=== PATIENT | male | born 1970 | race Caucasian/White ===

== ENCOUNTER 2022-03-19 11:48 | Emergency (ER) | payer BC ==
--- OUTSIDE RECORDS SUMMARY | 2022-03-19 11:51 | XMS REPORT | Continuity of Care Document ---
:1970 Author Organization [facility] t Address [address] [place] [address] Care Team Providers Name Role Phone C_Hall Attending Clinician Unavailable C_Hall Admitting Clinician Unavailable Payers Payer Name Policy Type Policy Number Effective Date Expiration Date S marques [facility]: [facility] [place] [id number] 2015 00:00:00 Problems This patient has no known problems. Allergies, Adverse Reactions, Alerts This patient has no known allergies or adverse reactions. Medications This patient has no known medications. Procedures This patient has no known procedures. Encounters Start End Encounter Admission Attending Care Care Encounter Source Date/Time Date/Time Type Type Clinicians Facility Department ID 2020-06-02 2020-06-02 Outpatient [facility] [id number] [place] 02:43:00 02:43:00 [facility] Results This patient has no known results.
[2022-03-19] MEDS ORDERED: FAMOTIDINE 20 MG/2 ML VIAL IV ONE (12:34)
[2022-03-19] MEDS ORDERED: METHYLPREDNISOLONE 125 MG INJ ONE (13:10)
[2022-03-19] MEDS ORDERED: DIPHENHYDRAMINE 50 MG/ML VIAL ONE (13:10)
[2022-03-19 13:20] LABS: Hematocrit 43.7 % (39.6-49.0); MCV 86.6 fL (80-100); MPV 7.7 fL (7.6-11.3); RBC Red Blood Cell Count 5.05 M/uL (4.33-5.43)
[2022-03-19 13:38] LABS: Potassium 3.5 mmol/L (3.5-5.1); Troponin High Sensitivity 5.3 pg/mL (<58.9)
--- NOTE | 2022-03-19 15:34 | ER ---
Nurse's Notes [facility] Name: Jason Kirk Age: 51 yrs Sex: Male : 1970 Arrival Date: 03/19/2022 Time: 11:51 Bed 5 Private MD: Diagnosis: Personal history of anaphylaxis;Insect allergy status Presentation: 03/19 11:59 Chief complaint: EMS states: anaphylactic reaction to a wasp sting at 1055 , iw administered his epi pen at 1059, EMS arrived on scne and pt was still SOB, pale, diaphoretic , administered epi 0.3 Im to right deltoid, gave 50 benadryl IV, 125 solumedrol, one albuterol treatment , symptoms improved. Coronavirus screen: At this time, the client does not indicate any symptoms associated with coronavirus-19. Ebola Screen: Patient negative for fever greater than or equal to 101.5 degrees Fahrenheit, and additional compatible Ebola Virus Disease symptoms Patient denies exposure to infectious person. Patient denies travel to an Ebola-affected area in the 21 days before illness onset. No symptoms or risks identified at this time. Onset: The symptoms/episode began/occurred 1 hour(s) ago. Anaphylaxis evaluation, the patient reports or I have noted the following symptoms which indicate a significant risk of anaphylaxis: shortness of breath. Initial Sepsis Screen: Does the patient meet any 2 criteria? No. Patient's initial sepsis screen is negative. Does the patient have a suspected source of infection? No. Patient's initial sepsis screen is negative. Risk Assessment: Do you want to hurt yourself or someone else? Patient reports no desire to harm self or others. Onset of symptoms was March 19, 2022. 11:59 Method Of Arrival: EMS: [facility] iw 11:59 Acuity: MEGHAN 3 iw 12:02 Care prior to arrival: Medication(s) given: Albuterol Neb benadryl 50 ivp, 125 iw solu-medrol IV initiated. 18 GA, in the right forearm. Historical: - Allergies: 15:19 Bees; em6 - Immunization history:: Adult Immunizations unknown. - Social history:: Smoking status: unknown. Screenin:00 Abuse screen: Denies threats or abuse. Nutritional screening: No deficits noted. em6 Tuberculosis screening: No symptoms or risk factors identified. Fall Risk IV access (20 points). Total Beltran Fall Scale indicates No Risk (0-24 pts). Assessment: 12:00 General: Appears in no apparent distress. comfortable, Behavior is calm, cooperative, em6 appropriate for age. Pain: Denies pain. Neuro: Collins Agitation-Sedation Scale (RASS): 0 - Alert and Calm Level of Consciousness is awake, alert, obeys commands, Oriented to person, place, time, situation. Cardiovascular: Heart tones present Capillary refill < 3 seconds Patient's skin is warm and dry. Rhythm is sinus rhythm. Respiratory: Airway is patent Respiratory effort is even, unlabored, Respiratory pattern is regular, symmetrical, Breath sounds are clear bilaterally. GI: No signs and/or symptoms were reported involving the gastrointestinal system. : No signs and/or symptoms were reported regarding the genitourinary system. EENT: No signs and/or symptoms were reported regarding the EENT system. Derm: been sting in the left inner lower foot. Musculoskeletal: Circulation, motion, and sensation intact. Range of motion: intact in all extremities. 13:00 Reassessment: Patient appears in no apparent distress at this time. No changes from em6 previously documented assessment. Patient and/or family updated on plan of care and expected duration. Pain level reassessed. Patient is alert, oriented x 3, equal unlabored respirations, skin warm/dry/pink. 14:00 Reassessment: Patient appears in no apparent distress at this time. No changes from em6 previously documented assessment. Patient and/or family updated on plan of care and expected duration. Pain level reassessed. Patient is alert, oriented x 3, equal unlabored respirations, skin warm/dry/pink. 15:00 Reassessment: Patient appears in no apparent distress at this time. Patient and/or em6 family updated on plan of care and expected duration. Pain level reassessed. Patient is alert, oriented x 3, equal unlabored respirations, skin warm/dry/pink. Patient states feeling better. Patient states symptoms have improved. Vital Signs: 12:04 BP 126 / 71; Pulse 87; Resp 18 S; Pulse Ox 98% on R/A; iw 14:37 BP 105 / 69; Pulse 67; Resp 16; Pulse Ox 97% ; hb 15:15 BP 107 / 67; Pulse 70; Resp 16; Pulse Ox 97% ; em6 ED Course: 11:51 Patient arrived in ED. iw 11:54 Ahsan Lawson MD is Attending Physician. kdr 12:00 Bed in low position. Call light in reach. Side rails up X2. school bus monitor on. Pulse em6 ox on. NIBP on. Warm blanket given. 12:02 Triage completed. iw 12:03 Louis Iqbal, RN is Primary Nurse. jd3 12:03 Arm band placed on. iw 15:47 No provider procedures requiring assistance completed. IV discontinued, intact, em6 bleeding controlled, No redness/swelling at site. Pressure dressing applied. Administered Medications: 12:34 Drug: Pepcid (famotidine) 20 mg Route: IVP; Site: right forearm; em6 13:00 Follow up: Response: No adverse reaction em6 13:07 Drug: Benadryl (diphenhydrAMINE) 25 mg Route: IVP; Site: right forearm; iw 14:00 Follow up: Response: No adverse reaction em6 13:07 Drug: SOLU-Medrol (methylPrednisoLONE) 60 mg Route: IVP; Site: right forearm; iw 14:00 Follow up: Response: No adverse reaction em6 13:08 Drug: NS 0.9% 1000 ml Route: IV; Rate: 1 bolus; Site: right forearm; iw 14:30 Follow up: Response: No adverse reaction; IV Status: Completed infusion; IV Intake: em6 1000ml Medication: 15:27 VIS not applicable for this client. em6 Intake: 14:30 IV: 1000ml; Total: 1000ml. em6 Outcome: 15:34 Discharge ordered by . kdr 15:47 Discharged to home ambulatory, with significant other. em6 15:47 Condition: stable 15:47 Discharge instructions given to patient, family, Instructed on discharge instructions, follow up and referral plans. medication usage, Demonstrated understanding of instructions, follow-up care, medications, Prescriptions given X 2. 15:52 Patient left the ED. jd3 Signatures: Ahsan Lawson MD MD [facility] Elvia James RN RN Denita Arrington RN RN Louis Iqbal, IVANNA GONCALVES jNessa Pan RN RN em6
--- NOTE | 2022-03-19 15:34 | EDPHYS ---
Physician Documentation [facility] Name: Jason Kirk Age: 51 yrs Sex: Male : 1970 Arrival Date: 03/19/2022 Time: 11:51 Bed 5 Private MD: ED Physician Ahsan Lawson HPI: 03/19 12:47 This 51 yrs old Male presents to ER via EMS with complaints of Allergic Reaction. kdr 12:47 Patient was working in the yard when he felt a sharp burning/stinging in his left ankle kdr medially. He almost immediately began to feel symptoms of anaphylaxis including shortness of breath to have tightness in his chest and generalized swelling. He did not have any difficulty swallowing. Shortly after that, his gave him an EpiPen injection and they proceeded to come to the hospital. Patient seemed to be progressing and so EMS was called and [facility] was with them in route to the hospital. When EMS found the joint with the patient, they gave him Solu-Medrol 1 more rounds of epinephrine and Benadryl. See the nursing notes for the dosing. On arrival in the ED, the patient was still somewhat anxious but breathing appropriately vital signs were stable, oxygen saturation was normal.. Onset: The symptoms/episode began/occurred suddenly, just prior to arrival. Severity of symptoms: At their worst the symptoms were mild moderate just prior to arrival, in the emergency department the symptoms are unchanged. The patient has not experienced similar symptoms in the past, The patient has experienced similar episodes in the past, a few times. The patient has not recently seen a physician. Historical: - Allergies: 15:19 Bees; em6 - Immunization history:: Adult Immunizations unknown. - Social history:: Smoking status: unknown. ROS: 12:47 Constitutional: Negative for fever, chills, and weight loss, Eyes: Negative for injury, kdr pain, redness, and discharge, Neck: Negative for injury, pain, and swelling, Abdomen/GI: Negative for abdominal pain, nausea, vomiting, diarrhea, and constipation, Back: Negative for injury and pain, : Negative for injury, bleeding, discharge, and swelling, MS/Extremity: Negative for injury and deformity, Skin: Negative for injury, rash, and discoloration, Neuro: Negative for headache, weakness, numbness, tingling, and seizure activity. Psych: Negative for depression, anxiety, suicide ideation, homicidal ideation, and hallucinations, Allergy/Immunology: Negative for hives, rash, and allergies, Endocrine: Negative for neck swelling, polydipsia, polyuria, polyphagia, and marked weight changes, Hematologic/Lymphatic: Negative for swollen nodes, abnormal bleeding, and unusual bruising. 12:47 Cardiovascular: Positive for chest pain, palpitations, Chest tightness. 12:47 Respiratory: Positive for dyspnea on exertion, shortness of breath, at rest. Negative for hemoptysis, orthopnea, pleurisy, sputum production. Exam: 12:47 Constitutional: This is a well developed, well nourished patient who is awake, alert, kdr and in mild distress. Head/Face: Normocephalic, atraumatic. Eyes: Pupils equal round and reactive to light, extra-ocular motions intact. Lids and lashes normal. Conjunctiva and sclera are non-icteric and not injected. Cornea within normal limits. Periorbital areas with no swelling, redness, or edema. ENT: Nares patent. No nasal discharge, no septal abnormalities noted. Tympanic membranes are normal and external auditory canals are clear. Oropharynx with no redness, swelling, or masses, exudates, or evidence of obstruction, uvula midline. Mucous membranes moist. Neck: Trachea midline, no thyromegaly or masses palpated, and no cervical lymphadenopathy. Supple, full range of motion without nuchal rigidity, or vertebral point tenderness. No Meningismus. Chest/axilla: Normal chest wall appearance and motion. Nontender with no deformity. No lesions are appreciated. Cardiovascular: Regular rate and rhythm with a normal S1 and S2. No gallops, murmurs, or rubs. Normal PMI, no JVD. No pulse deficits. Respiratory: Lungs have equal breath sounds bilaterally, clear to auscultation and percussion. No rales, rhonchi or wheezes noted. No increased work of breathing, no retractions or nasal flaring. Abdomen/GI: Soft, non-tender, with normal bowel sounds. No distension or tympany. No guarding or rebound. No evidence of tenderness throughout. Back: No spinal tenderness. No costovertebral tenderness. Full range of motion. Skin: Warm, dry with normal turgor. Normal color with no rashes, no lesions, and no evidence of cellulitis. MS/ Extremity: Pulses equal, no cyanosis. Neurovascular intact. Full, normal range of motion. Neuro: Awake and alert, GCS 15, oriented to person, place, time, and situation. Cranial nerves II-XII grossly intact. Motor strength 5/5 in all extremities. Sensory grossly intact. Cerebellar exam normal. Normal gait. Psych: Awake, alert, with orientation to person, place and time. Behavior, mood, and affect are within normal limits. 18:09 ECG was reviewed by the Attending Physician. kdr Vital Signs: 12:04 BP 126 / 71; Pulse 87; Resp 18 S; Pulse Ox 98% on R/A; iw 14:37 BP 105 / 69; Pulse 67; Resp 16; Pulse Ox 97% ; hb 15:15 BP 107 / 67; Pulse 70; Resp 16; Pulse Ox 97% ; em6 MDM: 12:47 Data reviewed: vital signs. kdr 13:02 ED course: Patient continues to improve in general however he started to have some kdr chest discomfort and tightness again.. 15:34 Patient medically screened. kdr 03/19 13:01 Order name: Troponin High Sensitivity; Complete Time: 13:42 kdr 03/19 13:01 Order name: CBC with Diff; Complete Time: 13:42 kdr 03/19 13:01 Order name: Chem 7; Complete Time: 13:42 kdr / 13:01 Order name: EKG - Nurse/Tech; Complete Time: 13:13 kdr EC:09 Rate is 70 beats/min. Rhythm is regular, Sinus Rhythm with No ectopy, Right bundle kdr branch block. QRS [place] is Normal. NM interval is normal. QRS interval is normal. QT interval is normal. Clinical impression: NSR w/ Non-specific ST/T Changes. Administered Medications: 12:34 Drug: Pepcid (famotidine) 20 mg Route: IVP; Site: right forearm; em6 13:00 Follow up: Response: No adverse reaction em6 13:07 Drug: Benadryl (diphenhydrAMINE) 25 mg Route: IVP; Site: right forearm; iw 14:00 Follow up: Response: No adverse reaction em6 13:07 Drug: SOLU-Medrol (methylPrednisoLONE) 60 mg Route: IVP; Site: right forearm; iw 14:00 Follow up: Response: No adverse reaction em6 13:08 Drug: NS 0.9% 1000 ml Route: IV; Rate: 1 bolus; Site: right forearm; iw 14:30 Follow up: Response: No adverse reaction; IV Status: Completed infusion; IV Intake: em6 1000ml Disposition Summary: 03/19/22 15:34 Discharge Ordered Location: Home kdr Problem: new kdr Symptoms: have improved kdr Condition: Stable kdr Diagnosis - Personal history of anaphylaxis kdr - Insect allergy status kdr Followup: kdr - With: Private Physician - When: 48 Hours - Reason: If symptoms return, Further diagnostic work-up, Recheck today's complaints, Continuance of care, Re-evaluation by your physician Discharge Instructions: - Discharge Summary Sheet kdr - Bee, Wasp, or Hornet Sting, Adult kdr - Anaphylactic Reaction, Adult, [id number] kdr Forms: - Medication Reconciliation Form kdr - Thank You Letter kdr Prescriptions: - Benadryl 25 mg Oral Capsule - take 1 capsule by ORAL route every 6 hours As needed; 30 tablet; Refills: 0, kdr Product Selection Permitted - EpiPen 2-[place] - inject 1 application by INTRAMUSCULAR route as directed As needed Use as kdr directed on the packaging; 2 Applicator; Refills: 0, Product Selection Permitted Signatures: Dispatcher [employer] Ahsan Collins MD MD kdr Elvia James RN RN iw Martinez, Erika, RN RN em6
[2022-03-19 16:01] VITALS: O2SAT 97
[2022-03-19 16:05] VITALS: BP 107/67
--- NOTE | 2022-03-21 14:36 | EKG ---
Test Date: 2022-03-19 Test Time: 13:19:41 Geriatrician: KV MEASUREMENT RESULTS: Intervals: Rate: 70 AL: 184 QRSD: 112 QT: 410 QTc: 442 [place]: P: 28 AL: 184 QRS: -48 T: 26 INTERPRETIVE STATEMENTS: Normal sinus rhythm Pulmonary disease pattern Incomplete right bundle branch block Left anterior fascicular block Abnormal ECG Compared to ECG 05/04/2014 13:51:00 Incomplete right bundle-branch block now present Left anterior fascicular block now present Electronically Signed On 03-21-22 14:31:48 CDT by Robson De La Cruz
== END 2022-03-19 15:52 | disposition home or self-care (01) ==
LOC: ER 11:48
DX: R07.89 Other chest pain (principal); R06.02 Shortness of breath; Z87.892 Personal history of anaphylaxis; Z91.038 Other insect allergy status; Z91.030 Bee allergy status
CPT/HCPCS: 96361; 93005; 85025; 80048; 36415; 84484; 96375; 96374; 99284; J1200; J2930

== ENCOUNTER 2022-05-28 13:53 | Emergency (ER) | payer BC ==
--- OUTSIDE RECORDS SUMMARY | 2022-05-28 14:07 | XMS REPORT | Continuity of Care Document ---
:1970 Author Organization [facility] t Address [address] [place] [address] Care Team Providers Name Role Phone C_Hall Attending Clinician Unavailable C_Hall Admitting Clinician Unavailable Payers Payer Name Policy Type Policy Number Effective Date Expiration Date S marques [facility] [employer] [place] [id number] 2015 00:00:00 Problems This patient has no known problems. Allergies, Adverse Reactions, Alerts This patient has no known allergies or adverse reactions. Medications This patient has no known medications. Procedures This patient has no known procedures. Encounters Start End Encounter Admission Attending Care Care Encounter Source Date/Time Date/Time Type Type Clinicians Facility Department ID 2020-06-02 2020-06-02 Outpatient [facility] [id number] [place] 02:43:00 02:43:00 [facility] Results This patient has no known results.
[2022-05-28] MEDS ORDERED: ONDANSETRON 4 MG/2 ML VIAL ONE (15:44)
[2022-05-28] MEDS ORDERED: DIPHENHYDRAMINE 50 MG/ML VIAL ONE (15:44)
[2022-05-28] MEDS ORDERED: KETOROLAC 30 MG/ML INJ ONE (15:44)
[2022-05-28] MEDS ORDERED: NA CHLORIDE 0.9% 1,000 ML ONE (15:44)
--- NOTE | 2022-05-28 15:50 | RAD REPORT ---
EXAM DESCRIPTION: CT - Head Brain Wo Cont - 05/28/2022 3:40 pm CLINICAL HISTORY: Migraine COMPARISON: No comparisons TECHNIQUE: All CT scans are performed using dose optimization technique as appropriate and may inclu de automated exposure control or mA/KV adjustment according to patient size. FINDINGS: No intracranial hemorrhage, hydrocephalus or extra-axial fluid collection.No areas of brai n edema or evidence of midline shift. The paranasal sinuses and mastoids are clear. The calvarium is intact. IMPRESSION: No acute intracranial abnormality.
[2022-05-28 15:52] LABS: SARS-COV-2 RT PCR NEGATIVE (NEGATIVE)
[2022-05-28 16:39] LABS: Absolute Lymphocytes (CBC) 1.4 K/uL (0.7-4.9); Hematocrit 48.5 % (39.6-49.0); Lymphocytes % 13.4 % (15.3-44.8); MCV 86.9 fL (80-100); MPV 8.5 fL (7.6-11.3); RBC Red Blood Cell Count 5.58 M/uL (4.33-5.43)
[2022-05-28 16:44] LABS: Albumin 4.6 g/dL (3.4-5.0); Bilirubin Total 0.9 mg/dL (0.2-1.0); Protein, Total 7.9 g/dL (6.4-8.2); Troponin High Sensitivity 5.4 pg/mL (<58.9)
[2022-05-28] MEDS ORDERED: MORPHINE 2 MG/ML SYR ONE (17:02)
--- NOTE | 2022-05-28 17:15 | EDPHYS ---
Physician Documentation [facility] Name: Jason Kirk Age: 51 yrs Sex: Male : 1970 Arrival Date: 05/28/2022 Time: 13:54 Bed 11 Private MD: ED Physician Bryce Emerson HPI: 05/28 17:11 This 51 yrs old Male presents to ER via Ambulatory with complaints of jl9 Migraine. . 17:11 The patient complains of pain to the top of head and forehead. The patient describes jl9 the headache as pounding. Onset: The symptoms/episode began/occurred this morning. Associated signs and symptoms: Pertinent positives: nausea. Severity of symptoms: in the emergency department the pain a " 8" out of "10". Headache History: The patient has had previous headaches and this one is similar to previous episodes. The symptoms are alleviated by nothing. the symptoms are aggravated by nothing. The patient has experienced similar episodes in the past. Historical: - Allergies: 17:07 Bees; ss 17:07 TETRACYCLINES; ss 17:07 Codeine; ss - Home Meds: 15:00 None [Active]; vg1 - PMHx: 15:00 Migraine; NIDDM; vg1 - PSHx: 15:00 None; vg1 - Immunization history:: Adult Immunizations up to date, Client reports having NOT received the Covid vaccine. Last tetanus immunization: up to date. - Social history:: Smoking status: Patient denies any tobacco usage or history of. ROS: 17:12 Constitutional: Negative for fever, chills, and weight loss, Eyes: Negative for injury, jl9 pain, redness, and discharge, ENT: Negative for injury, pain, and discharge, Neck: Negative for injury, pain, and swelling, Cardiovascular: Negative for chest pain, palpitations, and edema, Respiratory: Negative for shortness of breath, cough, wheezing, and pleuritic chest pain, Back: Negative for injury and pain. 17:12 : Negative for injury, bleeding, discharge, and swelling, MS/Extremity: Negative for injury and deformity, Skin: Negative for injury, rash, and discoloration. 17:12 Psych: Negative for depression, anxiety, suicide ideation, homicidal ideation, and hallucinations, Allergy/Immunology: Negative for hives, rash, and allergies, Endocrine: Negative for neck swelling, polydipsia, polyuria, polyphagia, and marked weight changes, Hematologic/Lymphatic: Negative for swollen nodes, abnormal bleeding, and unusual bruising. 17:12 Abdomen/GI: Positive for nausea. 17:12 Neuro: Positive for headache. Exam: 17:13 Constitutional: This is a well developed, well nourished patient who is awake, alert, jl9 and in no acute distress. Head/Face: Normocephalic, atraumatic. Eyes: Pupils equal round and reactive to light, extra-ocular motions intact. Lids and lashes normal. Conjunctiva and sclera are non-icteric and not injected. Cornea within normal limits. Periorbital areas with no swelling, redness, or edema. ENT: Mucous membranes moist. Neck: Trachea midline, no thyromegaly or masses palpated, and no cervical lymphadenopathy. Supple, full range of motion without nuchal rigidity, or vertebral point tenderness. No Meningismus. Chest/axilla: Normal chest wall appearance and motion. Nontender with no deformity. No lesions are appreciated. Cardiovascular: Regular rate and rhythm with a normal S1 and S2. No gallops, murmurs, or rubs. Normal PMI, no JVD. No pulse deficits. Respiratory: Lungs have equal breath sounds bilaterally, clear to auscultation and percussion. No rales, rhonchi or wheezes noted. No increased work of breathing, no retractions or nasal flaring. Abdomen/GI: Soft, non-tender, with normal bowel sounds. No distension or tympany. No guarding or rebound. No evidence of tenderness throughout. Back: No spinal tenderness. No costovertebral tenderness. Full range of motion. Skin: Warm, dry with normal turgor. Normal color with no rashes, no lesions, and no evidence of cellulitis. MS/ Extremity: Pulses equal, no cyanosis. Neurovascular intact. Full, normal range of motion. Neuro: Awake and alert, GCS 15, oriented to person, place, time, and situation. Cranial nerves II-XII grossly intact. Motor strength 5/5 in all extremities. Sensory grossly intact. Cerebellar exam normal. Normal gait. Psych: Awake, alert, with orientation to person, place and time. Behavior, mood, and affect are within normal limits. Vital Signs: 14:57 BP 123 / 90; Pulse 71; Resp 20; Temp 98.9; Pulse Ox 100% ; Weight 108.86 kg; Height 5 vg1 ft. 11 in. (180.34 cm); Pain 7/10; 17:05 BP 111 / 70; Pulse 59; Resp 14; Pulse Ox 100% on R/A; Pain 4/10; ss 14:57 Body Mass Index 33.47 (108.86 kg, 180.34 cm) vg1 Amboy Coma Score: 17:13 Eye Response: spontaneous(4). Verbal Response: oriented(5). Motor Response: obeys jl9 commands(6). Total: 15. MDM: 14:52 Patient medically screened. jl9 17:13 Differential diagnosis: cluster headache, migraine. Data reviewed: vital signs, nurses jl9 notes. Counseling: I had a detailed discussion with the patient and/or guardian regarding: the historical points, exam findings, and any diagnostic results supporting the discharge/admit diagnosis, lab results, radiology results, the need for outpatient follow up, to return to the emergency department if symptoms worsen or persist or if there are any questions or concerns that arise at home. Response to treatment: the patient's symptoms have resolved after treatment, the patient's pain is gone. 05/28 14:42 Order name: COVID-19/FLU A+B/RSV (Document "Date of Onset" if Symptomatic); Complete jl9 Time: 16:40 05/28 15:32 Order name: CBC with Diff; Complete Time: 16:40 05/28 15:28 Order name: CT Head Brain wo Cont; Complete Time: 15:52 05/28 15:32 Order name: CMP; Complete Time: 16:46 05/28 15:32 Order name: Troponin High Sensitivity; Complete Time: 16:46 jl9 Administered Medications: 15:59 Drug: NS 0.9% 1000 ml Route: IV; Rate: 1000 ml; Site: right antecubital; vg1 17:37 Follow up: IV Status: Completed infusion; IV Intake: 1000ml ss 16:00 Drug: Ondansetron 4 mg Route: IVP; Site: right antecubital; vg1 17:05 Follow up: Response: No adverse reaction ss 16:02 Drug: Ketorolac 30 mg Route: IVP; Site: right antecubital; vg1 17:05 Follow up: Response: No adverse reaction; Pain is decreased ss 16:03 Drug: Benadryl (diphenhydrAMINE) 12.5 mg Route: IVP; Site: right antecubital; vg1 17:05 Follow up: Response: No adverse reaction; Marked relief of symptoms ss 16:10 Not Given (Physician Discretion; medication unavailable): Compazine (prochlorperazine) vg1 10 mg IVP once 17:05 Drug: morphine 2 mg Route: IVP; Infused Over: 4 mins; Site: right antecubital; ss 17:36 Follow up: Response: No adverse reaction; Pain is decreased ss Disposition Summary: 05/28/22 17:14 Discharge Ordered Location: Home jl9 Condition: Stable jl9 Diagnosis - Migraine without aura, not intractable jl9 Followup: jl9 - With: Private Physician - When: 1 - 2 days - Reason: Recheck today's complaints, Continuance of care, Re-evaluation by your physician Discharge Instructions: - Discharge Summary Sheet jl9 - Migraine Headache, [id number] jl9 Forms: - Medication Reconciliation Form jl9 - Thank You Letter jl9 - Antibiotic Education jl9 - Prescription Opioid Use jl9 Prescriptions: - Imitrex 25 mg Oral Tablet - take 1 tablet by ORAL route one time - x 1 dose with fluids as early as jl9 possible after the onset of a migraine attack; if headache returns, the dose may be repeated after 2 hours, not to exceed a total daily dose of 8 tablets; 12 tablet; Refills: 0, Product Selection Permitted Addendum: 06/01/2022 09:40 Co-signature as Attending Physician, Bryce Emerson MD I agree with the assessment and c nuno plan of care. Signatures: Dispatcher [employer] Bryce Lees MD MD cha Smirch, Shelby RN RN Ainsley Sykes RN RN Richard England jl9 Corrections: (The following items were deleted from the chart) 05/28 15:01 15:00 PMHx: None; vg1 vg1
--- NOTE | 2022-05-28 17:15 | ER ---
Nurse's Notes [facility] Name: Jason Kirk Age: 51 yrs Sex: Male : 1970 Arrival Date: 05/28/2022 Time: 13:54 Bed 11 Private MD: Diagnosis: Migraine without aura, not intractable Presentation: 05/28 14:57 Chief complaint: Patient states: Pt reports migraine since he woke up this morning. vg1 Reports headache in frontal regio and in posterior head with associated vomiting and dizziness. Coronavirus screen: Vaccine status: Patient reports being unvaccinated. Client denies travel out of the [place] in the last 14 days. Ebola Screen: Patient negative for fever greater than or equal to 101.5 degrees Fahrenheit, and additional compatible Ebola Virus Disease symptoms Patient denies exposure to infectious person. Patient denies travel to an Ebola-affected area in the 21 days before illness onset. Initial Sepsis Screen: Does the patient meet any 2 criteria? No. Patient's initial sepsis screen is negative. Does the patient have a suspected source of infection? No. Patient's initial sepsis screen is negative. Risk Assessment: Do you want to hurt yourself or someone else? Patient reports no desire to harm self or others. Onset of symptoms was May 28, 2022. 14:57 Method Of Arrival: Ambulatory vg1 14:57 Acuity: MEGHAN 3 vg1 Triage Assessment: 15:00 Headache History: The patient has had previous headaches. General: Appears Behavior is. vg1 General: Behavior is calm, cooperative. Pain: Complains of pain in forehead and right side of the back of head Pain does not radiate. Pain currently is 7 out of 10 on a pain scale. Quality of pain is described as aching, throbbing, Pain began 0800 Also complains of nausea. Neuro: No deficits noted. Reports dizziness, headache. Historical: - Allergies: 17:07 Bees; ss 17:07 TETRACYCLINES; ss 17:07 Codeine; ss - Home Meds: 15:00 None [Active]; vg1 - PMHx: 15:00 Migraine; NIDDM; vg1 - PSHx: 15:00 None; vg1 - Immunization history:: Adult Immunizations up to date, Client reports having NOT received the Covid vaccine. Last tetanus immunization: up to date. - Social history:: Smoking status: Patient denies any tobacco usage or history of. Screenin:11 Abuse screen: Denies threats or abuse. Nutritional screening: No deficits noted. vg1 Tuberculosis screening: No symptoms or risk factors identified. Fall Risk No fall in past 12 months (0 pts). No secondary diagnosis (0 pts). IV access (20 points). Ambulatory Aid- None/Bed Rest/Nurse Assist (0 pts). Gait- Normal/Bed Rest/Wheelchair (0 pts) Mental Status- Oriented to own ability (0 pts). Total Beltran Fall Scale indicates No Risk (0-24 pts). Assessment: 17:06 General: Appears in no apparent distress. Behavior is calm, cooperative. Neuro: Level ss of Consciousness is awake, alert, obeys commands. Cardiovascular: Capillary refill < 3 seconds is brisk in bilateral fingers. Respiratory: Airway is patent Respiratory effort is even, unlabored, Respiratory pattern is regular, symmetrical. Derm: Skin is intact, is healthy with good turgor, Skin is pink, warm \T\ dry. normal. Musculoskeletal: Circulation, motion, and sensation intact. Range of motion: intact in all extremities, Swelling absent. 17:37 Reassessment: Patient appears in no apparent distress at this time. Patient and/or ss family updated on plan of care and expected duration. Pain level reassessed. Patient is alert, oriented x 3, equal unlabored respirations, skin warm/dry/pink. Patient states feeling better. Patient states symptoms have improved. Vital Signs: 14:57 BP 123 / 90; Pulse 71; Resp 20; Temp 98.9; Pulse Ox 100% ; Weight 108.86 kg; Height 5 vg1 ft. 11 in. (180.34 cm); Pain 7/10; 17:05 BP 111 / 70; Pulse 59; Resp 14; Pulse Ox 100% on R/A; Pain 4/10; ss 14:57 Body Mass Index 33.47 (108.86 kg, 180.34 cm) vg1 Tarik Coma Score: 17:13 Eye Response: spontaneous(4). Verbal Response: oriented(5). Motor Response: obeys jl9 commands(6). Total: 15. ED Course: 13:54 Patient arrived in ED. as 14:41 [facility] jl9 14:41 Bryce Emerson MD is Attending Physician. jl9 15:00 Triage completed. vg1 15:00 Arm band placed on right wrist. vg1 15:41 CT Head Brain wo Cont In Process Unspecified. EDMS 15:55 Initial lab(s) drawn, by me, sent to lab. Inserted saline lock: 20 gauge in right vg1 antecubital area, using aseptic technique. Blood collected. 16:11 Patient has correct armband on for positive identification. Bed in low position. Call vg1 light in reach. Side rails up X 1. 17:36 Diane Milton, IVANNA is Primary Nurse. ss 17:37 No provider procedures requiring assistance completed. IV discontinued, intact, ss bleeding controlled, No redness/swelling at site. Pressure dressing applied. Administered Medications: 15:59 Drug: NS 0.9% 1000 ml Route: IV; Rate: 1000 ml; Site: right antecubital; vg1 17:37 Follow up: IV Status: Completed infusion; IV Intake: 1000ml ss 16:00 Drug: Ondansetron 4 mg Route: IVP; Site: right antecubital; vg1 17:05 Follow up: Response: No adverse reaction ss 16:02 Drug: Ketorolac 30 mg Route: IVP; Site: right antecubital; vg1 17:05 Follow up: Response: No adverse reaction; Pain is decreased ss 16:03 Drug: Benadryl (diphenhydrAMINE) 12.5 mg Route: IVP; Site: right antecubital; vg1 17:05 Follow up: Response: No adverse reaction; Marked relief of symptoms ss 16:10 Not Given (Physician Discretion; medication unavailable): Compazine (prochlorperazine) vg1 10 mg IVP once 17:05 Drug: morphine 2 mg Route: IVP; Infused Over: 4 mins; Site: right antecubital; ss 17:36 Follow up: Response: No adverse reaction; Pain is decreased ss Medication: 16:11 VIS not applicable for this client. vg1 Intake: 17:37 IV: 1000ml; Total: 1000ml. ss Outcome: 17:14 Discharge ordered by . jl9 17:37 Discharged to home ambulatory, with family. ss 17:37 Condition: improved 17:37 Discharge instructions given to patient, family, Instructed on discharge instructions, follow up and referral plans. medication usage, Demonstrated understanding of instructions, follow-up care, medications, Prescriptions given X 1. 17:38 Patient left the ED. ss Signatures: Dispatcher [employer] Layla Ford Shelby, RN RN Ainsley Sykes RN RN vg1 Richard Yanes jl9 Corrections: (The following items were deleted from the chart) 15:01 15:00 PMHx: None; vg1 vg1
[2022-05-28 17:55] VITALS: TEMP 98.9; O2SAT 100
[2022-05-28 18:06] VITALS: BP 111/70
== END 2022-05-28 17:38 | disposition home or self-care (01) ==
LOC: ER 13:53
DX: G43.009 Migraine without aura, not intractable, without status migrainosus (principal); Z20.822 Contact with and (suspected) exposure to COVID-19; Z88.1 Allergy status to other antibiotic agents; Z88.5 Allergy status to narcotic agent; Z91.030 Bee allergy status
CPT/HCPCS: 96361; 85025; 36415; 84484; 80053; 0241U; 70450; 96375; 96374; 99284; J1200; J2270; J7030; J2405

== ENCOUNTER 2022-07-05 12:22 | Emergency (ER) | payer BC ==
--- OUTSIDE RECORDS SUMMARY | 2022-07-05 12:25 | XMS REPORT | Continuity of Care Document ---
:1970 Author Organization [facility] t Address [address] [place] [address] Care Team Providers Name Role Phone C_Hall Attending Clinician Unavailable C_Hall Admitting Clinician Unavailable Payers Payer Name Policy Type Policy Number Effective Date Expiration Date S marques [facility]: [place] [id number] 2015 00:00:00 Problems This patient has no known problems. Allergies, Adverse Reactions, Alerts This patient has no known allergies or adverse reactions. Medications This patient has no known medications. Procedures This patient has no known procedures. Encounters Start End Encounter Admission Attending Care Care Encounter Source Date/Time Date/Time Type Type Clinicians Facility Department ID 2020-06-02 2020-06-02 Outpatient C[facility] [id number] [place] 02:43:00 02:43:00 [id number] Results This patient has no known results.
[2022-07-05] MEDS ORDERED: IBUPROFEN 400 MG TAB ONE (13:11)
--- NOTE | 2022-07-05 13:27 | RAD REPORT ---
EXAM DESCRIPTION: Fabien Single View07/05/2022 1:06 pm CLINICAL HISTORY: cough COMPARISON: none FINDINGS: The lungs appear clear of acute infiltrate. The heart is normal size IMPRESSION: No acute abnormalities displayed
[2022-07-05 13:58] LABS: SARS-COV-2 RT PCR NEGATIVE (NEGATIVE)
--- NOTE | 2022-07-05 14:20 | ER ---
Nurse's Notes [facility] Name: Jason Kirk Age: 51 yrs Sex: Male : 1970 Arrival Date: 07/05/2022 Time: 12:25 Bed 13 Private MD: Diagnosis: Influenza due to identified novel influenza A virus with other respiratory manifestations Presentation: 07/05 12:53 Chief complaint: Patient states: decreased appetite, cough, sore throat, and nausea aa5 since yesterday. Pt states "I haven't been eating much so my sugar was 70 this morning". Coronavirus screen: cough unrelated to allergies, nausea. Ebola Screen: Patient denies travel to an Ebola-affected area in the 21 days before illness onset. Initial Sepsis Screen: Does the patient meet any 2 criteria? Temp <36.0*C (96.8*F)) or > 38.3*C (100.9*F). HR > 90 bpm. Yes Does the patient have a suspected source of infection? Yes:. Risk Assessment: Do you want to hurt yourself or someone else? Patient reports no desire to harm self or others. Onset of symptoms was June 2022. 12:53 Acuity: MEGHAN 3 aa5 12:53 Method Of Arrival: Ambulatory aa5 Triage Assessment: 13:00 General: Appears distressed, uncomfortable, ill, Behavior is calm, cooperative, bp appropriate for age. Pain: Complains of pain in neck. EENT: Throat is reddened. Neuro: No deficits noted. Cardiovascular: No deficits noted. Respiratory: No deficits noted. GI: No signs and/or symptoms were reported involving the gastrointestinal system. : No signs and/or symptoms were reported regarding the genitourinary system. Derm: No deficits noted. Musculoskeletal: No deficits noted. Historical: - Allergies: 12:53 Bees; aa5 12:53 Codeine; aa5 12:53 TETRACYCLINES; aa5 - PMHx: 12:53 Migraine; NIDDM; aa5 - Immunization history:: Adult Immunizations unknown. - Social history:: Smoking status: Patient/guardian denies using tobacco. Screenin:00 [facility] ED Fall Risk Assessment (Adult) History of falling in the last 3 months, bp including since admission No falls in past 3 months (0 pts). Abuse screen: Denies threats or abuse. Denies injuries from another. Nutritional screening: No deficits noted. Tuberculosis screening: No symptoms or risk factors identified. Assessment: 13:00 General: SEE TRIAGE NOTE. bp 14:25 Reassessment: PT DC HOME AMBULATORY. bp Vital Signs: 12:53 BP 140 / 86; Pulse 124; Resp 20 S; Temp 102.5(O); Pulse Ox 100% on R/A; Weight 108.86 aa5 kg (R); Height 5 ft. 11 in. (180.34 cm) (R); 13:40 BP 113 / 71; Pulse 105; Resp 16; Pulse Ox 92% on R/A; bp 14:25 BP 107 / 72; Pulse 107; Resp 16; Pulse Ox 95% ; bp 12:53 Body Mass Index 33.47 (108.86 kg, 180.34 cm) [facility] ED Course: 12:25 Patient arrived in ED. mr 12:33 Holli Barriga FNP is [facility] 12:33 Gómez Cobian MD is Attending Physician. [facility] 12:53 Arm band placed on. [facility] 12:55 Triage completed. [facility] 13:00 Patient has correct armband on for positive identification. Bed in low position. Call bp light in reach. Side rails up X2. 13:03 Jerome Mccord, RN is Primary Nurse. bp 13:08 XRAY Chest (1 view) In Process Unspecified. EDMS 14:25 No provider procedures requiring assistance completed. Patient did not have IV access bp during this emergency room visit. Administered Medications: 13:14 Drug: Motrin (ibuprofen) 600 mg Route: PO; bp 14:27 Follow up: Response: No adverse reaction bp Medication: 13:00 VIS not applicable for this client. bp Outcome: 14:18 Discharge ordered by . [facility] 14:25 Discharged to home ambulatory, with family. bp 14:25 Condition: stable 14:25 Discharge instructions given to patient, Instructed on discharge instructions, follow up and referral plans. medication usage, Demonstrated understanding of instructions, follow-up care, medications, Prescriptions given X 2. 14:36 Patient left the ED. bp Signatures: Dispatcher [facility] Cristy StantonJuany RN RN [facility] Jerome Mccord RN RN Hadash, Holli, FINE SANDER FINE SANDER [id number]
--- NOTE | 2022-07-05 14:20 | EDPHYS ---
Physician Documentation [facility] Name: Jason Kirk Age: 51 yrs Sex: Male : 1970 Arrival Date: 07/05/2022 Time: 12:25 Bed 13 Private MD: ED Physician Gómez Cobian HPI: 07/05 12:55 This 51 yrs old Male presents to ER via Ambulatory with complaints of Flu Symptoms. jh7 12:55 Onset: The symptoms/episode began/occurred yesterday. Associated signs and symptoms: jh7 Pertinent positives: cough, fever, sore throat, Pertinent negatives: shortness of breath, vomiting, wheezing. Patient reports body aches, chills, cough, fever, and sore throat since yesterday.. Historical: - Allergies: 12:53 Bees; aa5 12:53 Codeine; aa5 12:53 TETRACYCLINES; aa5 - PMHx: 12:53 Migraine; NIDDM; aa5 - Immunization history:: Adult Immunizations unknown. - Social history:: Smoking status: Patient/guardian denies using tobacco. ROS: 12:55 Eyes: Negative for injury, pain, redness, and discharge, Neck: Negative for injury, jh7 pain, and swelling, Cardiovascular: Negative for chest pain, palpitations, and edema, Abdomen/GI: Negative for abdominal pain, nausea, vomiting, diarrhea, and constipation, Back: Negative for injury and pain, MS/Extremity: Negative for injury and deformity, Skin: Negative for injury, rash, and discoloration, Neuro: Negative for headache, weakness, numbness, tingling, and seizure. 12:55 Constitutional: Positive for body aches, chills, fever. 12:55 ENT: Positive for sore throat. 12:55 Respiratory: Positive for cough, Negative for shortness of breath, wheezing. 12:55 All other systems are negative. Exam: 12:55 Head/Face: Normocephalic, atraumatic. ENT: Nares patent. No nasal discharge, no jh7 septal abnormalities noted. Tympanic membranes are normal and external auditory canals are clear. Oropharynx with no redness, swelling, or masses, exudates, or evidence of obstruction, uvula midline. Mucous membranes moist. Neck: Trachea midline, no thyromegaly or masses palpated, and no cervical lymphadenopathy. Supple, full range of motion without nuchal rigidity, or vertebral point tenderness. No Meningismus. Cardiovascular: Regular rate and rhythm with a normal S1 and S2. No gallops, murmurs, or rubs. Normal PMI, no JVD. No pulse deficits. Respiratory: Lungs have equal breath sounds bilaterally, clear to auscultation and percussion. No rales, rhonchi or wheezes noted. No increased work of breathing, no retractions or nasal flaring. Abdomen/GI: Soft, non-tender, with normal bowel sounds. No distension or tympany. No guarding or rebound. No evidence of tenderness throughout. Skin: Warm, dry with normal turgor. Normal color with no rashes, no lesions, and no evidence of cellulitis. MS/ Extremity: Pulses equal, no cyanosis. Neurovascular intact. Full, normal range of motion. Neuro: Awake and alert, GCS 15, oriented to person, place, time, and situation. Motor strength 5/5 in all extremities. Sensory grossly intact. Normal gait. 12:55 Constitutional: The patient appears alert, awake, uncomfortable. Vital Signs: 12:53 BP 140 / 86; Pulse 124; Resp 20 S; Temp 102.5(O); Pulse Ox 100% on R/A; Weight 108.86 aa5 kg (R); Height 5 ft. 11 in. (180.34 cm) (R); 13:40 BP 113 / 71; Pulse 105; Resp 16; Pulse Ox 92% on R/A; bp 14:25 BP 107 / 72; Pulse 107; Resp 16; Pulse Ox 95% ; bp 12:53 Body Mass Index 33.47 (108.86 kg, 180.34 cm) aa5 MDM: 12:33 Patient medically screened. [facility] 14:20 Differential diagnosis: viral Infection, bacterial infection, URI, bronchitis, jh7 pneumonia. Data reviewed: vital signs, nurses notes, radiologic studies, plain films. Data interpreted: Pulse oximetry: is 95 %. Interpretation: normal. Counseling: I had a detailed discussion with the patient and/or guardian regarding: the historical points, exam findings, and any diagnostic results supporting the discharge/admit diagnosis, to return to the emergency department if symptoms worsen or persist or if there are any questions or concerns that arise at home. 07/05 12:47 Order name: Strep; Complete Time: 13:50 jh7 07/05 12:47 Order name: XRAY Chest (1 view); Complete Time: 13:50 jh7 07/05 13:12 Order name: COVID-19/FLU A+B/RSV; Complete Time: 14:18 EDMS 07/05 13:17 Order name: Throat Culture EDMS Administered Medications: 13:14 Drug: Motrin (ibuprofen) 600 mg Route: PO; bp 14:27 Follow up: Response: No adverse reaction bp Disposition: 07/06 12:29 Co-signature as Attending Physician, Gómez Cobian MD I agree with the assessment and rt plan of care. Disposition Summary: 07/05/22 14:18 Discharge Ordered Location: Home [facility] Problem: new [facility] Symptoms: are unchanged [facility] Condition: Stable [facility] Diagnosis - Influenza due to identified novel influenza A virus with other respiratory [facility] manifestations Followup: [facility] - With: Private Physician - When: 2 - 3 days - Reason: Recheck today's complaints Discharge Instructions: - Discharge Summary Sheet [facility] - Influenza, Adult [facility] Forms: - Medication Reconciliation Form [facility] - Work release form bp - Thank You Letter [facility] Prescriptions: - Tamiflu 75 mg Oral Capsule - take 1 capsule by ORAL route every 12 hours for 5 days; 10 capsule; Refills: 0, [facility] Product Selection Permitted - Tessalon Perles 100 mg Oral Capsule - take 1 capsule by ORAL route every 8 hours As needed; 15 capsule; Refills: 0, [facility] Product Selection Permitted Signatures: Dispatcher [employer] EDJuany Alonzo RN RN aa5 Jerome Mccord RN RN bp Holli Barriga, [employer]ER [place] [id number] Gómez Cobian MD MD rt Corrections: (The following items were deleted from the chart) 07/05 13:10 12:47 COVID-19/FLU A+B+MOL.LAB.BRZ ordered. EDMS EDMS 13:53 12:59 COVID-19/FLU A+B/RSV+MOL.LAB.BRZ ordered. EDMS EDMS
[2022-07-05 14:48] VITALS: TEMP 102.5
[2022-07-05 14:50] VITALS: BP 107/72; O2SAT 95
== END 2022-07-05 14:36 | disposition home or self-care (01) ==
LOC: ER 12:22
DX: J10.1 Influenza due to other identified influenza virus with other respiratory manifestations (principal); Z20.822 Contact with and (suspected) exposure to COVID-19; E11.9 Type 2 diabetes mellitus without complications; Z88.1 Allergy status to other antibiotic agents; Z88.5 Allergy status to narcotic agent; Z91.030 Bee allergy status
CPT/HCPCS: 87070; 87081; 0241U; 71045

== ENCOUNTER 2024-02-29 23:07 | Emergency (ER) | payer OTHER ==
--- NOTE | 2024-03-01 00:39 | EDPHYS ---
Physician Documentation [facility] Name: Jason Kirk Age: 53 yrs Sex: Male : 1970 Arrival Date: 02/29/2024 Time: 23:07 Bed 13 Private MD: ED Physician Chang Chao HPI: 02/28 23:55 This 53 yrs old Male presents to ER via Wheelchair with complaints of Leg Injury. cp 23:55 The patient presents with an injury. The complaints affect the left staples. cp 23:55 Context: resulted from heavy metal tray falling and striking lower leg. cp 23:55 Onset: The symptoms/episode began/occurred today. Associated signs and symptoms: The cp patient has no apparent associated signs or symptoms. Historical: - Allergies: 23:36 Bees; tl4 23:36 Codeine; tl4 23:36 TETRACYCLINES; tl4 - Home Meds: 23:36 Ozempic subcutaneous 0.5 mg every week [Active]; tl4 - PMHx: 23:36 Migraine; NIDDM; Asthma; tl4 - Immunization history:: Last tetanus immunization: < 5 years ago. - Infectious Disease History:: Denies. - Social history:: Smoking status: Patient/guardian denies using tobacco. ROS: 23:57 MS/extremity: Positive for injury or acute deformity, pain, swelling, tenderness, of cp the left staples, 23:57 Back: Negative for pain at rest, pain with movement, cp 23:57 Neuro: Positive for numbness, of the left foot, Negative for weakness, 23:57 All other systems are negative, Exam: 23:59 Constitutional: The patient appears in no acute distress, alert, awake, well developed, cp well nourished, uncomfortable, 23:59 Musculoskeletal/extremity: Extremities: noted in the left staples: contusion, ecchymosis, cp pain, swelling, tenderness, Perfusion: the extremity is normally perfused throughout, the left foot numbness, mild Vital Signs: 23:29 BP 111 / 67; Pulse 68; Resp 18; Temp 98.5(O); Pulse Ox 97% on R/A; Weight 94.35 kg; tl4 Height 6 ft. 0 in. ; Pain 6/10; 03/01 01:00 BP 114 / 63; Pulse 71; Resp 16; Pulse Ox 98% on R/A; pc2 02/28 23:29 Body Mass Index 28.21 (94.35 kg, 182.88 cm) tl4 02/28 23:29 Pain Scale: Adult tl4 MDM: 02/28 23:54 Patient medically screened. cp 03/01 00:25 Independent interpretation of the following test(s) in the Emergency Department X-Ray: cp My interpretation is images of left lower leg negative for fracture. 00:37 Data reviewed: vital signs, nurses notes, radiologic studies, plain films. cp 00:37 Differential diagnosis: open fracture, closed fracture, contusion, abrasion. I cp considered the following discharge prescriptions or medication management in the emergency department Medications were administered in the Emergency Department. See MAR. Counseling: I had a detailed discussion with the patient and/or guardian regarding the historical points, exam findings, and any diagnostic results supporting the discharge/admit diagnosis, radiology results, to return to the emergency department if symptoms worsen or persist or if there are any questions or concerns that arise at home. Response to treatment: the patient's symptoms have markedly improved after treatment, and as a result, I will discharge patient. 02/28 23:47 Order name: XRAY Tib Fib LEFT cp 03/01 00:24 Order name: Crutches; Complete Time: 01:14 cp Administered Medications: 02/28 23:52 CANCELLED (Physician Discretion): morphine6 mg IM once cp 03/01 00:56 Not Given (Patient Refused): hydrocodone-wcyvxaoxhxykd10 mg-325 mg 1 tabs PO once pc2 00:56 Drug: Ibuprofen PO 800 mg PO once Route: PO; pc2 01:14 Follow up: Response: No adverse reaction; Medication administered at discharge. pc2 Disposition Summary: 03/01/24 00:38 Discharge Ordered Notes: Location: Home cp Problem: new cp Symptoms: have improved cp Condition: Stable cp Diagnosis - Contusion of left lower leg cp Followup: cp - With: Private Physician - When: 2 - 3 days - Reason: Recheck today's complaints Discharge Instructions: - Discharge Summary Sheet cp - Contusion cp - Hematoma cp - Form - Return To Work pc2 Forms: - Medication Reconciliation Form cp - Antibiotic Education cp - Prescription Opioid Use cp - Patient Portal Instructions cp - Leadership Thank You Letter cp Prescriptions: - Anaprox DS 550 mg Oral Tablet - take 1 tablet ORAL route every 12 hours As needed; 20 tablet; Refills: 0, cp Product Selection Permitted Signatures: Dispatcher [employer] EDMS Bryce Rodgers PA PA cp Logdahl, Toni, RN RN tl4 Afsaneh Johnson, RN RN pc2 Corrections: (The following items were deleted from the chart) 02/28 23:52 23:52 morphine IM 6 mg IM once ordered. cp cp
--- NOTE | 2024-03-01 00:39 | ER ---
Nurse's Notes [facility] Name: Jason Kirk Age: 53 yrs Sex: Male : 1970 Arrival Date: 02/29/2024 Time: 23:07 Bed 13 Private MD: Diagnosis: Contusion of left lower leg Presentation: 02/28 23:29 Chief complaint: Patient states: Pt c/o left lower leg pain, discoloration, and tl4 swelling after being struck by metal tray that fell from shoulder height at approx 1400 today. Pt c/o pain with weight bearing and tingling in left foot. Coronavirus screen: At this time, the client does not indicate any symptoms associated with coronavirus-19. Ebola Screen: No symptoms or risks identified at this time. Initial Sepsis Screen: Does the patient meet any 2 criteria? No. Patient's initial sepsis screen is negative. Does the patient have a suspected source of infection? No. Patient's initial sepsis screen is negative. Risk Assessment: Do you want to hurt yourself or someone else? Patient reports no desire to harm self or others. Onset of symptoms was February 29, 2024 at 14:00. 23:29 Method Of Arrival: Wheelchair tl4 23:29 Acuity: MEGHAN 4 tl4 Triage Assessment: 23:41 General: Appears in no apparent distress. Behavior is calm, cooperative. Pain: tl4 Complains of pain in left leg. EENT: No signs and/or symptoms were reported regarding the EENT system. Neuro: Level of Consciousness is awake, alert, obeys commands, Oriented to person, place, time, situation, Moves all extremities. Full function. Cardiovascular: Capillary refill < 3 seconds Patient's skin is warm and dry. Respiratory: Airway is patent Respiratory effort is even, unlabored, Respiratory pattern is regular, symmetrical. GI: No signs and/or symptoms were reported involving the gastrointestinal system. : No signs and/or symptoms were reported regarding the genitourinary system. Derm: No signs and/or symptoms reported regarding the dermatologic system. Musculoskeletal: Reports pain in left leg. Injury Description: Abrasion sustained to left leg Bruise sustained to left leg. Historical: - Allergies: 23:36 Bees; tl4 23:36 Codeine; tl4 23:36 TETRACYCLINES; tl4 - Home Meds: 23:36 Ozempic subcutaneous 0.5 mg every week [Active]; tl4 - PMHx: 23:36 Migraine; NIDDM; Asthma; tl4 - Immunization history:: Last tetanus immunization: < 5 years ago. - Infectious Disease History:: Denies. - Social history:: Smoking status: Patient/guardian denies using tobacco. Screenin:48 [facility] ED Fall Risk Assessment (Adult) History of falling in the last 3 months, pc2 including since admission No falls in past 3 months (0 pts) Confusion or Disorientation No (0 pts) Intoxicated or Sedated No (0 pts) Impaired Gait No (0 pts) Mobility Assist Device Used No (0 pt) Altered Elimination No (0 pt) Score/Fall Risk Level 0 - 2 = Low Risk Oriented to surroundings, Maintained a safe environment, Hourly rounding (assess needs \T\ fall precautionary measures) done. Abuse screen: Denies threats or abuse. Denies injuries from another. Nutritional screening: No deficits noted. Tuberculosis screening: No symptoms or risk factors identified. Assessment: 23:46 General: Appears in no apparent distress. Behavior is calm, cooperative, appropriate pc2 for age. Neuro: Level of Consciousness is awake, alert, obeys commands, Oriented to person, place, time, situation. Cardiovascular: Patient's skin is warm and dry. Respiratory: Airway is patent Respiratory effort is even, unlabored, Respiratory pattern is regular, symmetrical. GI: No signs and/or symptoms were reported involving the gastrointestinal system. : No signs and/or symptoms were reported regarding the genitourinary system. EENT: No signs and/or symptoms were reported regarding the EENT system. 03/01 01:13 Musculoskeletal: Circulation, motion, and sensation intact. Capillary refill < 3 pc2 seconds, Range of motion: intact in all extremities, Swelling present in left staples hematoma to outer aspect of left staples. Vital Signs: 02/28 23:29 BP 111 / 67; Pulse 68; Resp 18; Temp 98.5(O); Pulse Ox 97% on R/A; Weight 94.35 kg; tl4 Height 6 ft. 0 in. ; Pain 6/10; 03/01 01:00 BP 114 / 63; Pulse 71; Resp 16; Pulse Ox 98% on R/A; pc2 02/28 23:29 Body Mass Index 28.21 (94.35 kg, 182.88 cm) tl4 02/28 23:29 Pain Scale: Adult tl4 ED Course: 02/28 23:10 Patient arrived in ED. mr 23:12 Bryce Rodgers PA is PHCP. cp 23:12 Chang Chao MD is Attending Physician. cp 23:36 Triage completed. tl4 23:42 Arm band placed on left wrist. tl4 03/01 00:06 Afsaneh Johnson, RN is Primary Nurse. pc2 00:07 X-ray(s) taken. pc2 00:09 Patient has correct armband on for positive identification. Bed in low position. Call pc2 light in reach. Provided Education on: POC and time frame. 00:09 No provider procedures requiring assistance completed. pc2 00:12 XRAY Tib Fib LEFT In Process Unspecified. EDMS 00:57 Patient did not have IV access during this emergency room visit. pc2 Administered Medications: 02/28 23:52 CANCELLED (Physician Discretion): morphine6 mg IM once cp 03/01 00:56 Not Given (Patient Refused): hydrocodone-pyeasmicxdgqk34 mg-325 mg 1 tabs PO once pc2 00:56 Drug: Ibuprofen PO 800 mg PO once Route: PO; pc2 01:14 Follow up: Response: No adverse reaction; Medication administered at discharge. pc2 Medication: 00:07 VIS not applicable for this client. pc2 Outcome: 00:38 Discharge ordered by MD. cp 00:57 Discharged to home with crutches, with significant other, pc2 00:57 Condition: stable 00:57 Discharge instructions given to patient, family, Instructed on discharge instructions, follow up and referral plans. medication usage, crutch walking, Demonstrated understanding of instructions, follow-up care, medications, crutch walking, 01:14 Patient left the ED. pc2 Signatures: Dispatcher [employer] EDOH Cristy Smart, Reg Reg mr Bryce Rodgers PA PA cp Logdahl, Toni, RN RN 4 Afsaneh Johnson, RN RN pc2 Corrections: (The following items were deleted from the chart) 01:13 02/28 23:46 EENT: No signs and/or symptoms were reported regarding the EENT system. pc2 pc2
[2024-03-01] MEDS ORDERED: IBUPROFEN 400 MG TAB ONE (00:40)
[2024-03-01] MEDS ORDERED: HYDROCODONE/APAP 10/325 TAB ONE (00:40)
[2024-03-01 01:43] VITALS: TEMP 98.5
[2024-03-01 01:44] VITALS: BP 114/63; O2SAT 98
--- NOTE | 2024-03-01 14:26 | RAD REPORT ---
EXAM DESCRIPTION: RAD - Tib Fib Left - 03/01/2024 12:10 am XR Left Tibia/Fibula 2 Views CLINICAL HISTORY: Contusion COMPARISON: None TECHNIQUE: Left Tibia/Fibula 2 Views FINDINGS: No fracture or dislocation. No significant sclerotic/lytic bone lesion. Tiny patellar enthesophyte (bone spur) arising from its superoanterior aspect. Joint spaces unremarkable. Focal, moderate, soft tissue swelling at distal anterior left lower leg (staples). No radiopaque foreign body. IMPRESSION: Focal, moderate, soft tissue swelling at distal anterior left lower leg (staples). This is consistent with patient's known contusion. Electronically signed by: Jeyson Flores MD 03/01/2024 01:02 AM CDT RP Due to temporary technical issues with the PACS/Fluency reporting system, reports are being signed by the in house radiologists without review as a courtesy to insure prompt reporting. The interpreting radiologist is fully responsible for the content of the report.
--- OUTSIDE RECORDS SUMMARY | 2024-03-03 09:05 | XMS REPORT | Continuity of Care Document ---
Author Name Unknown Address [address] [place] [address] [facility] Address 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
== END 2024-03-01 01:14 | disposition home or self-care (01) ==
LOC: ER 23:07
DX: S80.12XA Contusion of left lower leg, initial encounter (principal); W22.8XXA Striking against or struck by other objects, initial encounter
CPT/HCPCS: 99284

== ENCOUNTER 2024-11-11 08:45 | Day surgery (SDC) | payer OTHER ==
[2024-11-07 11:18] LABS: Absolute Basophils 0.1 K/uL (0-0.5); Absolute Eosinophils 0.1 K/uL (0-0.5); Absolute Lymphocytes (CBC) 1.8 K/uL (0.7-4.9); Absolute Monocytes 0.6 K/uL (0.1-1.3); Absolute Neutrophil 4.9 K/uL (1.8-8.0); Basophils % 0.8 % (0-1.3); Eosinophils % 1.9 % (0-4.4); Hematocrit 44.9 % (39.6-49.0); Hemoglobin 15.4 g/dL (13.6-17.9); Lymphocytes % 24.7 % (15.3-44.8); MCH 30.1 pg (27.0-35.0); MCHC 34.4 g/dL (32.0-36.0); MCV 87.7 fL (80-100); MPV 7.6 fL (7.6-11.3); Monocytes % 7.5 % (3.3-12.3); Neutrophils % 65.1 % (41.7-73.7); Nucleated Red Blood Cells % 0.1 % (0-0); Platelets 175 thou/uL (152-406); RBC Red Blood Cell Count 5.12 M/uL (4.33-5.43); Red Cell Distribution Width 13.2 % (12.1-15.2)
[2024-11-07 11:41] LABS: Anion Gap 8.2 mEq/L (5.0-15.0)
[2024-11-07 11:43] LABS: Potassium 4.2 mEq/L (3.5-5.1)
--- NOTE | 2024-11-10 12:18 | EKG ---
Test Date: 2024-11-07 Test Time: 11:00:36 [place] Man: JONI MEASUREMENT RESULTS: Intervals: Rate: 64 AK: 188 QRSD: 112 QT: 390 QTc: 402 [place]: P: 30 AK: 188 QRS: -43 T: 13 INTERPRETIVE STATEMENTS: Normal sinus rhythm Left axis deviation Low voltage QRS Abnormal ECG Compared to ECG 03/19/2022 13:19:41 Left-axis deviation now present Low QRS voltage now present Incomplete right bundle-branch block no longer present Left anterior fascicular block no longer present Electronically Signed On 11-10-24 12:10:20 CDT by Chaitanya Walden
[2024-11-11] MEDS: NA CHLORIDE 0.9% 1,000 ML ONE (09:18)
[2024-11-11] MEDS: SCOPOLAMINE HYDROBROMIDE PATCH TD ONE (09:24)
[2024-11-11] MEDS ORDERED: FENTANYL CITR 100 MCG/2 ML ONE ×2 (10:15→11:02)
[2024-11-11] MEDS ORDERED: propofoL 200 MG/20 ML VIAL IV ONE (10:15)
[2024-11-11] MEDS ORDERED: LIDOCAINE 2% MPF 5 ML VIAL ONE (10:15)
[2024-11-11] MEDS ORDERED: MIDAZOLAM HCL 2 MG/2 ML INJ ONE (10:16)
[2024-11-11] MEDS: CEFAZOLIN SODIUM 1 GM/VIAL ONE (10:39)
[2024-11-11] MEDS ORDERED: dexAMETHasone 10 MG/ML VIAL ONE (11:01)
[2024-11-11] MEDS ORDERED: ONDANSETRON 4 MG/2 ML VIAL ONE (11:01)
[2024-11-11] MEDS ORDERED: KETOROLAC 30 MG/ML INJ ONE (11:02)
[2024-11-11] MEDS ORDERED: METOCLOPRAMIDE 10 MG/2mL INJ ONE (11:02)
[2024-11-11 12:12] VITALS: TEMP 97.1
[2024-11-11 13:28] VITALS: BP 113/78; O2SAT 100
--- NOTE | 2024-11-11 21:08 | OP ---
Date of Procedure: 11/11/2024 Surgeon: Gigi Zuñiga MD Preoperative Diagnosis: Left knee pain with mechanical symptoms, possible plical or other pathology, unresponsive to conservative measures. Postoperative Diagnoses: 1. Synovial hypertrophy within the notch. 2. Fibrous band which extended across the medial and femoral condyle. Does not appear to be exactly consistent with a plica, but does appear to have reciprocal changes of the medial femoral condyle, ch ondral degeneration. 3. Mild patellofemoral arthritis. Procedure: Debridement of abundant synovial tissue including tissue within the notch, also takedown of medial fibrous band, very slight abrasive chondroplasty of the superior medial aspect of the femor al condyle. Estimated Blood Loss: Less than 10 cc. Complications: There were no complications. Specimens: No pathology specimens sent. Indications For Operation: Mr. Kirk is a patient who came to see me with complaints of pain and m echanical symptoms related to his left knee. He had an MRI, which essentially showed some patellofem oral arthritis, but otherwise was clear of meniscal tear or other internal derangement and was sent f or rheumatoid panel to see whether or not this could be contributory or the cause of this pain. Rheu matoid panel negative. After this, obtained a corticosteroid injection, also sent to physical therap y, which did not assist him with his pain and problems. At this time, risks, benefits, and alternati ves to arthroscopic intervention have been discussed with him. We discussed that MRI is usually very accurate when determining whether or not arthroscopic intervention would be helpful, but at times, i t is not specifically of concern would be a fibrous band or plical band which is causing a problem, w hich is frequently missed with MRI or other pathology which can sometimes be missed. He says he unde rstands things as presented. He knows that the risks ensued included the risk of anesthesia, infecti on, DVT, and the largest risk would be failure to improve despite this intervention. He says he unde rstands things as presented and wishes to proceed. Description Of Procedure: The patient was taken to the operating room, placed in supine position. G eneral anesthesia was easily obtained by the Anesthesia staff. Following this, a well-padded tourniq uet was placed on superior left thigh. Left lower extremity was then prepped and draped in the usual sterile fashion for the procedure. This was followed by placement of the superior medial arthroscop y portal which was made atraumatically with 1 pass with liberation of scanty synovial fluid. This wa s followed by placement of inferolateral arthroscopy portal. The knee was then sequentially examined including suprapatellar pouch, medial and lateral compartments, the medial and lateral gutters and t he notch. Pertinent findings included what appeared to be a fairly taut fibrous band which with flex ion-extension may impact the medial femoral condyle. Also medial femoral condyle had some chondral c hanges at the superior medial corner. Also seen is some degenerative changes of the patellofemoral c ompartment. Also seen is abundant synovial tissue within the notch. Following this, a standard medi al arthroscopy portal was then made using a needle for localization. Both the medial and lateral men isci were then very carefully examined throughout and we used a probe to examine the unstable compone nts. Following this, some of the synovial tissue was debrided from within the notch. Also, there wa s removal of some fat pad which could possibly cause some fat pad impingement but it was mostly for v isualization completely of the lateral compartment. Following this, there was a little bleeding and the tourniquet was raised. Attention was then turned to the superior medial portion of the femoral c ondyle, which appears to be extra-articular, but with some chondral abnormality and light abrasive ch ondroplasty was done here. The last thing addressed is the fibrous band, which was identified first. Shaver was then used to debride this back until flexion extension does not yield the fibrous band, but definitely there is no attempt to debride more tissue than appears necessary for the concern of p ossible injury to the medial parapatellar ligament or other structures. After this, the knee was aga in observed and all the above areas including suprapatellar pouch, medial and lateral gutters, medial and lateral compartments as well as the notch and patellofemoral joints showed no further pathology seen, which was amenable to arthroscopic intervention. The inferior arthroscopic portals were then s tapled shut. The superior and medial arthroscopy portal was then used for placement of Marcaine. Th is was then stapled. The patient was placed in a well-padded sterile dressing, awakened, and taken t o recovery room in good condition. There were no complications. SE/MODL Voice ID: [id number] Report ID: [id number]
== END 2024-11-11 13:05 | disposition home or self-care (01) ==
LOC: OR 08:45
PROVIDERS: ATTEND Orthopaedic Surgery
PROC: 0SBD4ZZ Excision of Left Knee Joint, Percutaneous Endoscopic Approach (ICD-10-PCS; principal; 2024-11-11 10:30)
DX: M25.562 Pain in left knee (principal); M17.12 Unilateral primary osteoarthritis, left knee; M67.262 Synovial hypertrophy, not elsewhere classified, left lower leg
CPT/HCPCS: 29875; 93005; 85025; 80048; 36415; 82947 ×2; J2704; J2765; J2003; J2250; J3010 ×2; J1100; J2405; J7030; J0690

== ENCOUNTER 2025-02-24 05:55 | Emergency (ER) | payer OTHER ==
--- OUTSIDE RECORDS SUMMARY | 2025-02-24 05:58 | XMS REPORT | Continuity of Care Document ---
Author Name Unknown Address [address] [facility] [address] [place] [address] [facility] Address [address] [facility] [place] [address] Care Team Providers Care Sports Equipment Supervisor Name Role Phone EDWARD LOPEZ Primary Care Physician UnavailDarell Mora Attending Clinician [phone] Unknown, Attending Attending Clinician Unavailab DARELL Crabtree Attending Clinician Unavailable C_Manoj Attending Clinician Unavailable CNa Admitting Clinician Unavailable Payers Payer Name Policy Type Policy Number Effective Date Expirati on Date Source [place] [id number] 2015 00:00:00 Allergies, Adverse Reactions, Alerts Allergy Name Allergy Type Status Severity Reaction(s) Onset Date Inactive Date Treating Clinician Comments Source TETRACYC LINE DRUG INGREDI Active Unknown-Cmnt 09-30 00:00: 00 [facility] Codeine Propensi ty to adverse reaction s Active Unknown - See comments 09-30 00:00: 00 [facility] Tetracyc line Propensi ty to adverse reaction s Active Unknown - See comments 09-30 00:00: 00 [facility] CODEINE DRUG INGREDI Active Unknown-Cmnt 09-30 00:00: 00 [facility] Social History Social Habit Start Date Stop Date Quantity Comments Source [facility] at 1970 [facility]00 1970 00:00:00 [facility] Smoking Status Start Date Stop Date Source Tobacco smoking consumption unknown [facility] Medications Ordered Medication Name Filled Medication Name Start Date Stop Date Current Medication? Ordering Clinician Indication Dosage Frequency Signature (SIG) Comments Components Source benzonatate 200 mg capsule 08-03 00:00: 00 Yes [id number] 200mg Take 1 capsule by mouth 3 (three) times daily as needed for Cough. [facility] predniSONE 20 mg tablet 2023-07 00:00: 00 Yes [id number] TAKE ONE TABLET ORALLY TWICE A DAY [facility] methocarbam oL 750 mg tablet 2023-07 00:00: 00 Yes [id number] 750mg Take 1 tablet by mouth every 6 (six) hours as needed for Pain (scale 7-10) (MUSCLE SPASM). [facility] gabapentin (NEURONTIN) 300 mg capsule 09-30 00:00: 00 Yes TAKE 1 CAPSULE BY MOUTH EVERY NIGHT AT BEDTIME. [facility] Vital Signs Vital Name Observation Time Observation Value Comments S nickfranco Systolic blood pressure 2024-08-03 18:51:00 109 mm[Hg] [facility] Diastolic blood pressure 2024-08-03 18:51:00 80 mm[Hg] [facility] Heart rate 2024-08-03 18:51:00 69 /min [facility] Body temperature 2024-08-03 18:51:00 36.39 [place] [facility] Respiratory rate 2024-08-03 18:51:00 18 /min [facility] Body weight 2024-08-03 18:51:00 101.197 kg [facility] BMI 2024-08-03 18:51:00 32.01 kg/m2 [facility] Oxygen saturation in Arterial blood by Pulse oximetry 2024-08-03 18:51:00 99 /min [facility] Encounters Start Date/Time End Date/Time Encounter Type Admission Type Attending Clinicians Care Facility Care Department Encounter ID Source 2024-08-03 14:40:00 2024-08-03 15:00:00 Urgent Care Darell Arambula Unknown, Attending [facility] [id number] [facility] 2024-08-03 14:40:00 2024-08-03 13:09:29 Outpatient R DARELL ARAMBULA [facility] [id number] [facility] 2024-08-03 00:00:00 2024-08-03 13:04:56 Letter (Out) Darell Arambula [facility] [id number] [facility]
[2025-02-24] MEDS ORDERED: ONDANSETRON 4 MG/2 ML VIAL ONE (06:06)
[2025-02-24] MEDS ORDERED: KETOROLAC 30 MG/ML INJ ONE (06:06)
[2025-02-24] MEDS ORDERED: NA CHLORIDE 0.9% 1,000 ML ONE (06:07)
[2025-02-24] MEDS ORDERED: MORPHINE 4 MG/ML SYR ONE (06:07)
[2025-02-24] MEDS ORDERED: FAMOTIDINE 20 MG/2 ML VIAL IV ONE (06:07)
[2025-02-24 06:31] LABS: Absolute Lymphocytes (CBC) 2.2 K/uL (0.7-4.9); Hematocrit 43.2 % (39.6-49.0); Hemoglobin 14.9 g/dL (13.6-17.9); MCH 30.2 pg (27.0-35.0); MCHC 34.4 g/dL (32.0-36.0); MCV 87.6 fL (80-100); MPV 8.1 fL (7.6-11.3); Nucleated RBC Absolute Count 0.0 (0-0); Nucleated Red Blood Cells % 0.0 % (0-0); RBC Red Blood Cell Count 4.92 M/uL (4.33-5.43); White Blood Count 7.20 thou/uL (4.3-10.9)
[2025-02-24 06:57] LABS: ALT/SGPT 48.0 U/L (16-61); AST/SGOT 21.0 U/L (15-37); Albumin 4.2 g/dL (3.4-5.0); Albumin/Globulin Ratio 1.6 (1.1-1.8); Alkaline Phosphatase 131.0 U/L (45-117); Anion Gap 8.5 mEq/L (5.0-15.0); BUN Blood Urea Nitrogen 16.0 mg/dL (7-18); Globulin 2.7 g/dL (2.3-3.5); Glucose Level 147.0 mg/dL (74-106); Lipase 114.0 U/L (13-75); Potassium 3.5 mEq/L (3.5-5.1)
[2025-02-24] MEDS ORDERED: FENTANYL CITR 100 MCG/2 ML ONE (07:21)
[2025-02-24] MEDS ORDERED: METOCLOPRAMIDE 10 MG/2mL INJ ONE (07:21)
[2025-02-24] MEDS ORDERED: NA CHLORIDE 0.9% 50 ML ONE (07:22)
--- NOTE | 2025-02-24 07:41 | RAD REPORT ---
EXAMINATION: CT ABDOMEN AND PELVIS WITH CONTRAST CLINICAL INDICATION: ABD PAIN TECHNIQUE: CT abdomen and pelvis was performed, after the administration of IV contrast, as per [facility] protocol. Axial, sagittal and coronal reconstructions were obtained. One or more of the following dose reduction techniques were used: Automated exposure control, adjustment of the mA and k V according to patient size, and iterative reconstruction. Unless otherwise specified, incidental findings do not require dedicated imaging follow-up. COMPARISON: No prior exam. FINDINGS: LOWER CHEST: Mild linear atelectasis is seen in both lung bases. LIVER: Normal in size and contour. No focal lesion. Grossly unremarkable gallbladder. SPLEEN: Normal size. No focal lesion. PANCREAS: No mass, ductal dilation, or dieter-pancreatic fluid. ADRENALS: Normal; no mass. KIDNEYS: 6 mm calculus is present distal right ureter resulting in mild right hydronephrosis and hydr oureter. No left-sided stone or hydronephrosis. GASTROINTESTINAL TRACT: No evidence of free air, significant intra-abdominal free fluid, bowel obstru ction or abscess. Mild sigmoid diverticulosis coli. APPENDIX: Appendix not visualized, but no inflammatory changes in region of appendix. LYMPH NODES: No lymphadenopathy. MUSCULOSKELETAL: Mild multilevel spinal degenerative changes. ADDITIONAL FINDINGS: None. IMPRESSION: 6 mm stone distal right ureter resulting in mild right hydronephrosis and hydroureter.
[2025-02-24 08:18] LABS: Sqamous Epithelial None Seen /HPF (None Seen); Urine Crystals Unidentified Few /HPF (None Seen); Urine Micro Reflex YN NO BILL MICROSCOPIC; Urine WBC Clump Occasional /HPF (None Seen); Urine Yeast (Budding) Moderate /HPF (None Seen)
[2025-02-24] MEDS ORDERED: Levofloxacin500mg IV 500 MG/100 ML BAG IV ONE (08:44)
--- NOTE | 2025-02-24 08:45 | EDPHYS ---
Physician Documentation [facility] Name: Jason Kirk Age: 54 yrs Sex: Male : 1970 Arrival Date: 02/24/2025 Time: 05:55 Bed 8 Private MD: ED Physician Florencia Russell HPI: 02/24 05:59 This 54 yrs old Other Race Male presents to ER via Unassigned with complaints of abd sp4 pain . 06:06 54-year-old male presents with acute onset right lower quadrant abdominal pain with sp4 radiation to the right back. Sudden onset severe pain at 4:30 in the morning. EMS has administered fentanyl and Zofran prior to arrival. Historical: - Allergies: 06:15 Bees; lg3 06:15 Codeine; lg3 06:15 TETRACYCLINES; lg3 - Home Meds: 06:15 Ozempic subcutaneous 0.5 mg every week [Active]; gabapentin oral [Active]; Nexium Oral lg3 [Active]; Trazodone Oral [Active]; - PMHx: 06:15 Asthma; Migraine; NIDDM; lg3 - PSHx: 06:15 knee (NIDDM); lg3 - Immunization history:: Adult Immunizations up to date. - Infectious Disease History:: Denies. - Family history:: not pertinent. - Social history:: Smoking status: Patient denies any tobacco usage or history of. Patient/guardian denies using alcohol, street drugs. ROS: 06:06 Constitutional: Negative for fever, chills, and weight loss, positive for right lower sp4 abdominal pain associated with vomiting, positive radiation of pain to the back 06:06 All other systems are negative, Exam: 06:06 Constitutional: This is a well developed, well nourished patient who is awake, alert, sp4 and in no acute distress. Head/Face: Normocephalic, atraumatic. Eyes: Pupils equal round and reactive to light, extra-ocular motions intact. Lids and lashes normal. Conjunctiva and sclera are not injected. Cornea within normal limits. Periorbital areas with no swelling, redness, or edema. ENT: Nares patent. No nasal discharge, no septal abnormalities noted. Tympanic membranes are normal and external auditory canals are clear. Oropharynx with no redness, swelling, or masses, exudates, or evidence of obstruction, uvula midline. Mucous membranes moist. Neck: Trachea midline, no thyromegaly or masses palpated, and no cervical lymphadenopathy. Supple, full range of motion without nuchal rigidity, or vertebral point tenderness. Chest/axilla: Normal chest wall appearance and motion. Nontender with no deformity. No lesions are appreciated. Cardiovascular: Regular rate and rhythm with a normal S1 and S2. No gallops, murmurs, or rubs. No pulse deficits. Respiratory: Lungs have equal breath sounds bilaterally, clear to auscultation and percussion. No rales, rhonchi or wheezes noted. No increased work of breathing, no retractions or nasal flaring. Abdomen/GI: Soft, with normal bowel sounds. No distension or tympany. Moderate guarding, right sided abdominal tenderness moderate to severe, positive rebound Back: No spinal tenderness. No costovertebral tenderness. Skin: Warm, dry with normal turgor. Normal color with no rashes, no lesions, and no evidence of cellulitis. MS/ Extremity: Pulses equal, no cyanosis. Neurovascular intact. Full, normal range of motion. Neuro: Awake and alert, GCS 15, oriented to person, place, time, and situation. Cranial nerves II-XII grossly intact. Motor strength 5/5 in all extremities. Sensory grossly intact. Psych: Awake, alert, with orientation to person, place and time. Behavior, mood, and affect are within normal limits Vital Signs: 06:13 BP 119 / 68; Pulse 72; Resp 16; Temp 97.7(O); Pulse Ox 97% on R/A; Weight 86.18 kg (R); lg3 Height 5 ft. 11 in. (R); Pain 8/10; 06:58 BP 107 / 64; Pulse 60; Resp 16 S; Pulse Ox 98% on R/A; lg3 07:36 BP 109 / 72; Pulse 65; Resp 18; Pulse Ox 92% on R/A; ph 08:59 BP 107 / 74; Pulse 68; Resp 18; Pulse Ox 99% ; ph 10:17 BP 109 / 75; Pulse 65; Resp 18; Temp 98.1; Pulse Ox 98% on R/A; ph 06:13 Body Mass Index 26.50 (86.18 kg, 180.34 cm) lg3 06:13 Pain Scale: Adult lg3 Tarik Coma Score: 06:06 Eye Response: spontaneous(4). Motor Response: obeys commands(6). Verbal Response: sp4 oriented(5). Total: 15. MDM: 06:00 Medical Screening Exam initiated sp4 06:07 Differential diagnosis: appendicitis, bowel obstruction, coronary artery disease, sp4 diverticulitis, gastritis, GI Bleed, Hepatitis, Irritable bowel syndrome. Data reviewed: vital signs, nurses notes, EMS record, old medical records, lab test result(s), radiologic studies, CT scan. Consideration of Admission/Observation Escalation of care including admission/observation considered. ED course: Workup was ordered. Awaiting for CT report.. 07:21 Transition of care: After a detail discussion of the patient's case, care is sp4 transferred to Florencia Russell MD. 07:38 ED course: Patient signed out to me by nighttime physician. Patient is a 54-year-old sp3 male with asthma, migraines and insulin-dependent diabetes who presents with abdominal pain with probable kidney stone. UA and CT scan of the abdomen pelvis is pending. Disposition pending workup and patient course.. 08:43 ED course: Patient was improved after pain medications given by overnight shift. CT sp3 scan demonstrated 6 mm kidney stone with mild hydronephrosis. Will treat with pain medication, Flomax and Levaquin. Patient did have WBCs in the urine however no bacteria. Creatinine is normal and vital signs are normal.. 02/24 06:00 Order name: CBC with Diff; Complete Time: 07:18 sp4 02/24 06:00 Order name: CMP; Complete Time: 07:18 sp4 02/24 06:00 Order name: Lipase; Complete Time: 07:18 sp4 02/24 06:00 Order name: UA W/ Microscopic; Complete Time: 08:36 sp4 02/24 06:00 Order name: CT Abd/Pelvis - IV Contrast Only; Complete Time: 07:42 sp4 02/24 06:00 Order name: IV Saline Lock; Complete Time: 06:20 sp4 02/24 06:00 Order name: Labs collected and sent; Complete Time: 06:20 sp4 Administered Medications: 06:19 Drug: Famotidine IVP 20 mg IVP once; dilute with 10 mL 0.9% NaCl; give over 2 minutes lg3 Route: IVP; Site: left forearm; 06:59 Follow up: Response: No adverse reaction lg3 06:19 Drug: Droperidol IVP 2.5 mg IVP once Route: IVP; Site: left forearm; lg3 06:59 Follow up: Response: No adverse reaction; Marked relief of symptoms lg3 06:20 Drug: TORadol - Ketorolac IVP 30 mg IVP once Route: IVP; Site: left forearm; lg3 06:59 Follow up: Response: No adverse reaction; Marked relief of symptoms lg3 06:20 Drug: Ondansetron IVP 4 mg IVP once; over 2 minutes Route: IVP; Site: left forearm; lg3 06:59 Follow up: Response: No adverse reaction; Marked relief of symptoms lg3 06:20 Drug: morphine IVP or IV 4 mg IVP once over 4 mins Route: IVP; Infused Over: 4 mins; lg3 Site: left forearm; 06:59 Follow up: Response: No adverse reaction; Marked relief of symptoms lg3 06:20 Drug: NS 0.9% IV 1000 ml IV at 1 bolus Per protocol; to be given as a bolus over 60 lg3 minutes Route: IV; Rate: 1 bolus; Site: left forearm; 07:30 Follow up: Response: No adverse reaction; IV Status: Completed infusion; IV Intake: ph 1000ml 07:30 Drug: fentaNYL (PF) IVP 100 mcg IVP once Route: IVP; Site: left forearm; ph 10:19 Follow up: Response: No adverse reaction ph 07:30 Drug: metoCLOPramide IVP 10 mg IVP once; over 1 to 2 minutes Route: IVP; Site: left ph forearm; 10:18 Follow up: Response: No adverse reaction ph 08:59 Drug: levofloxacin IVPB 500 mg 100 ml IVPB once over 60 mins Volume: 100 ml; Route: ph IVPB; Infused Over: 60 mins; Site: left forearm; 10:18 Follow up: Response: No adverse reaction; IV Status: Completed infusion ph Disposition Summary: 02/24/25 08:44 Discharge Ordered Notes: Location: Home sp3 Condition: Stable sp3 Diagnosis - Ureterolithiasis, kidney stone, hydronephrosis, flank pain sp3 Followup: sp3 - With: Betito Ruiz MD - When: Upon discharge from the Emergency Department - Reason: Recheck today's complaints Discharge Instructions: - Discharge Summary Sheet sp3 - Kidney Stones sp3 Forms: - Work release form ph - Medication Reconciliation Form sp3 - Antibiotic Education sp3 - Prescription Opioid Use sp3 - Patient Portal Instructions sp3 - Leadership Thank You Letter sp3 Prescriptions: - Flomax 0.4 mg Oral capsule - take 1 capsule ORAL route daily; 5 capsule; Refills: 0, Product Selection sp3 Permitted - Tramadol 50 mg Oral Tablet - take 1 tablet ORAL route every 8 hours as needed; 12 tablet; Refills: 0, sp3 Product Selection Permitted - levofloxacin 500 mg Oral tablet - take 1 tablet ORAL route once daily for 6 days; 6 tablet; Refills: 0, Product sp3 Selection Permitted Signatures: Dispatcher [employer] Sadaf Kong RN RN AbleMichelle RN RN lg3 Florencia Russell MD MD sp3 Nito Pate MD MD sp4
--- NOTE | 2025-02-24 08:45 | ER ---
Nurse's Notes [facility] Name: Jason Kirk Age: 54 yrs Sex: Male : 1970 Arrival Date: 02/24/2025 Time: 05:55 Bed 8 Private MD: Diagnosis: Ureterolithiasis, kidney stone, hydronephrosis, flank pain Presentation: 02/24 06:13 Chief complaint: Patient states: sudden onset right lower quadrant pain with N/V. onset lg3 0430. Coronavirus screen: Client denies travel out of the [place] in the last 14 days. At this time, the client does not indicate any symptoms associated with coronavirus-19. Ebola Screen: No symptoms or risks identified at this time. Initial Sepsis Screen: Does the patient meet any 2 criteria? No. Patient's initial sepsis screen is negative. Does the patient have a suspected source of infection? No. Patient's initial sepsis screen is negative. Risk Assessment: Do you want to hurt yourself or someone else? Patient reports no desire to harm self or others. Onset of symptoms was February 24, 2025. 06:13 Method Of Arrival: [facility] lg3 06:13 Acuity: MEGHAN 3 lg3 06:13 Care prior to arrival: Medication(s) given: zofran 4 mg, Fentanyl 50MCG. lg3 Triage Assessment: 06:15 General: Appears in no apparent distress. uncomfortable, Behavior is calm, cooperative. lg3 Pain: Complains of pain in right lower quadrant Pain radiates to right low back Pain currently is 7 out of 10 on a pain scale. EENT: No deficits noted. No signs and/or symptoms were reported regarding the EENT system. Neuro: No deficits noted. Collins Agitation-Sedation Scale (RASS): 0 - Alert and Calm Level of Consciousness is awake, alert, obeys commands, Oriented to person, place, time, situation. Cardiovascular: No deficits noted. Denies chest pain, shortness of breath, Capillary refill < 3 seconds Clubbing of nail beds is absent JVD is absent Patient's skin is warm and dry. Respiratory: No deficits noted. Airway is patent Respiratory effort is even, unlabored, Respiratory pattern is regular, symmetrical. GI: Abdomen is flat, non-distended, Bowel sounds present X 4 quads. Abd is soft X 4 quads Abdomen is tender to palpation in right lower quadrant Guarding noted in right lower quadrant Reports lower abdominal pain, nausea, vomiting. : No signs and/or symptoms were reported regarding the genitourinary system. Derm: No deficits noted. No signs and/or symptoms reported regarding the dermatologic system. Skin is intact, is healthy with good turgor, Skin is dry, Skin is normal, Skin temperature is warm. Musculoskeletal: No deficits noted. No signs and/or symptoms reported regarding the musculoskeletal system. Circulation, motion, and sensation intact. Range of motion: intact in all extremities. Historical: - Allergies: 06:15 Bees; lg3 06:15 Codeine; lg3 06:15 TETRACYCLINES; lg3 - Home Meds: 06:15 Ozempic subcutaneous 0.5 mg every week [Active]; gabapentin oral [Active]; Nexium Oral lg3 [Active]; Trazodone Oral [Active]; - PMHx: 06:15 Asthma; Migraine; NIDDM; lg3 - PSHx: 06:15 knee (NIDDM); lg3 - Immunization history:: Adult Immunizations up to date. - Infectious Disease History:: Denies. - Family history:: not pertinent. - Social history:: Smoking status: Patient denies any tobacco usage or history of. Patient/guardian denies using alcohol, street drugs. Screenin:18 [facility] ED Fall Risk Assessment (Adult) History of falling in the last 3 months, lg3 including since admission No falls in past 3 months (0 pts) Confusion or Disorientation No (0 pts) Intoxicated or Sedated No (0 pts) Impaired Gait No (0 pts) Mobility Assist Device Used No (0 pt) Altered Elimination No (0 pt) Score/Fall Risk Level 0 - 2 = Low Risk Oriented to surroundings, Maintained a safe environment, Educated pt \T\ family on fall prevention, incl call for assistance when getting out of bed, Assessed \T\ reinforced patient's understanding of fall precautions. Abuse screen: Denies threats or abuse. Denies injuries from another. Nutritional screening: No deficits noted. Tuberculosis screening: No symptoms or risk factors identified. Assessment: 06:18 General: see triage assessment. lg3 06:58 Reassessment: Patient appears in no apparent distress at this time. No changes from lg3 previously documented assessment. Patient and/or family updated on plan of care and expected duration. Pain level reassessed. Patient is alert, oriented x 3, equal unlabored respirations, skin warm/dry/pink. Patient states feeling better. Patient states symptoms have improved. 09:06 Reassessment: D/C pending IV antibiotics. ph 10:17 Reassessment: Patient appears in no apparent distress at this time. Patient and/or ph family updated on plan of care and expected duration. Pain level reassessed. Patient is alert, oriented x 3, equal unlabored respirations, skin warm/dry/pink. Patient states feeling better. Patient states symptoms have improved. Vital Signs: 06:13 BP 119 / 68; Pulse 72; Resp 16; Temp 97.7(O); Pulse Ox 97% on R/A; Weight 86.18 kg (R); lg3 Height 5 ft. 11 in. (R); Pain 8/10; 06:58 BP 107 / 64; Pulse 60; Resp 16 S; Pulse Ox 98% on R/A; lg3 07:36 BP 109 / 72; Pulse 65; Resp 18; Pulse Ox 92% on R/A; ph 08:59 BP 107 / 74; Pulse 68; Resp 18; Pulse Ox 99% ; ph 10:17 BP 109 / 75; Pulse 65; Resp 18; Temp 98.1; Pulse Ox 98% on R/A; ph 06:13 Body Mass Index 26.50 (86.18 kg, 180.34 cm) lg3 06:13 Pain Scale: Adult lg3 Tarik Coma Score: 06:06 Eye Response: spontaneous(4). Motor Response: obeys commands(6). Verbal Response: sp4 oriented(5). Total: 15. ED Course: 05:57 Patient arrived in ED. rv1 05:59 Nito Pate MD is Attending Physician. sp4 06:13 Michelle Sampson RN is Primary Nurse. lg3 06:15 Triage completed. lg3 06:15 Arm band placed on right wrist. lg3 06:18 Patient has correct armband on for positive identification. Placed in gown. Bed in low lg3 position. Call light in reach. Side rails up X 1. Client placed on continuous cardiac and pulse oximetry monitoring. NIBP monitoring applied. Door closed. Noise minimized. Warm blanket given. Pillow given. Family accompanied patient. 06:18 Initial lab(s) drawn, by me, sent to lab. Inserted saline lock: 22 gauge in left lg3 forearm, using aseptic technique. Blood collected. Flushed with 10 mL NS. 07:10 CT Abd/Pelvis - IV Contrast Only In Process Unspecified. EDMS 07:26 Attending Physician role handed off by Nito Pate MD sp3 07:26 Florencia Russell MD is Attending Physician. sp3 08:00 No provider procedures requiring assistance completed. Urine collected: clean catch ph specimen, cloudy, aisha colored. 08:44 Betito Ruiz MD is Referral Physician. sp3 10:17 IV discontinued, intact, bleeding controlled, No redness/swelling at site. Pressure ph dressing applied. Administered Medications: 06:19 Drug: Famotidine IVP 20 mg IVP once; dilute with 10 mL 0.9% NaCl; give over 2 minutes lg3 Route: IVP; Site: left forearm; 06:59 Follow up: Response: No adverse reaction lg3 06:19 Drug: Droperidol IVP 2.5 mg IVP once Route: IVP; Site: left forearm; lg3 06:59 Follow up: Response: No adverse reaction; Marked relief of symptoms lg3 06:20 Drug: TORadol - Ketorolac IVP 30 mg IVP once Route: IVP; Site: left forearm; lg3 06:59 Follow up: Response: No adverse reaction; Marked relief of symptoms lg3 06:20 Drug: Ondansetron IVP 4 mg IVP once; over 2 minutes Route: IVP; Site: left forearm; lg3 06:59 Follow up: Response: No adverse reaction; Marked relief of symptoms lg3 06:20 Drug: morphine IVP or IV 4 mg IVP once over 4 mins Route: IVP; Infused Over: 4 mins; lg3 Site: left forearm; 06:59 Follow up: Response: No adverse reaction; Marked relief of symptoms lg3 06:20 Drug: NS 0.9% IV 1000 ml IV at 1 bolus Per protocol; to be given as a bolus over 60 lg3 minutes Route: IV; Rate: 1 bolus; Site: left forearm; 07:30 Follow up: Response: No adverse reaction; IV Status: Completed infusion; IV Intake: ph 1000ml 07:30 Drug: fentaNYL (PF) IVP 100 mcg IVP once Route: IVP; Site: left forearm; ph 10:19 Follow up: Response: No adverse reaction ph 07:30 Drug: metoCLOPramide IVP 10 mg IVP once; over 1 to 2 minutes Route: IVP; Site: left ph forearm; 10:18 Follow up: Response: No adverse reaction ph 08:59 Drug: levofloxacin IVPB 500 mg 100 ml IVPB once over 60 mins Volume: 100 ml; Route: ph IVPB; Infused Over: 60 mins; Site: left forearm; 10:18 Follow up: Response: No adverse reaction; IV Status: Completed infusion ph Medication: 06:18 VIS not applicable for this client. lg3 Intake: 07:30 IV: 1000ml; Total: 1000ml. ph Outcome: 08:44 Discharge ordered by sp3 10:17 Discharged to home ambulatory, with family, ph 10:17 Condition: good 10:17 Discharge instructions given to patient, family, Instructed on discharge instructions, follow up and referral plans. medication usage, Demonstrated understanding of instructions, follow-up care, medications, Prescriptions given X 3, 10:19 Patient left the ED. ph Signatures: Dispatcher [employer] EDSadaf Mathis RN RN ph Able, IVANNA Martinez RN lg3 Florencia Russell MD MD sp3 Genie Bundy rv1 Nito Pate MD MD sp4 Corrections: (The following items were deleted from the chart) 07:30 07:30 metoCLOPramide IVP 10 mg IVP in left antecubital ph ph
[2025-02-24 10:30] VITALS: BP 109/75; TEMP 98.1; O2SAT 98
== END 2025-02-24 10:19 | disposition home or self-care (01) ==
LOC: ER 05:55
DX: N13.2 Hydronephrosis with renal and ureteral calculous obstruction (principal)
CPT/HCPCS: 96365; 96361; 85025; 81001; 36415; 83690; 80053; 74177; 96375; 99284; Q9967; J2765; J3010; J2405; J1790; J7030